=== PATIENT | female | born 1990 | race Caucasian/White ===

== ENCOUNTER 2019-11-25 00:54 | Outpatient (CLI) | payer BC, SELFPAY ==
[2019-11-25 19:20] LABS: SARS-CoV-2 RNA PCR Negative
== END 2019-11-25 00:55 | disposition home or self-care (01) ==
LOC: ANHCOVIDDT 00:54
PROVIDERS: Visit Provider Obstetrics & Gynecology
DX: Z01.812 Encounter for preprocedural laboratory examination (principal); Z11.59 Encounter for screening for other viral diseases
CPT/HCPCS: 87635; C9803; U0003

== ENCOUNTER 2019-11-27 02:23 | Day surgery (SDC) | payer BC, SELFPAY ==
[2019-11-13 14:48] VITALS: BMI 23.1
[2019-11-27] VITALS (8 sets, daily range): BP systolic 91–119; BP diastolic 68–85; PULSE 75–107; RESP 12–20; TEMP 36.4–36.9; O2SAT 95–100
--- NOTE | 2019-11-27 07:38 | PM.IMHP ---
H&P: HPI History of Present Illness Chief complaint: Pelvic Pain Narrative: Ro Presley is a 29 year old female since March. The pain is mostly on the right side. No relief with Motrin or Tylenol. Negative for infection. She has had normal pelvic ultrasound. She had physical therapy and did not get any relief. She was treated for possible subclinical endometritis and no change in pain after the antibiotics. She denies intestinal symptoms. She declined trial of Depo-Provera, Depo-Lupron or Orilissa. Review of Systems Review of Systems: All systems reviewed & are unremarkable except as noted in HPI and below Constitutional: Constitutional: Reports no additional constitutional complaints Eyes: Eyes: Reports no additional eye complaints ENT: Reports Normal hearing present Cardiovascular: Cardiovascular: Denies chest pain and Denies dyspnea Respiratory: Respiratory: Reports no additional respiratory complaints, Reports cough, Denies dyspnea and Reports other Genitourinary: Genitourinary: Reports no additional female genitourinary complaints, Reports as per HPI, Denies dyspareunia, Denies vaginal discharge, Denies vaginal dryness, Denies vaginal odor and Denies vaginal pruritus Integumentary/Breasts: Skin/Breast: Denies breast mass and Denies nipple discharge Neurologic: Reports Normal hearing present Psychiatric: Psychiatric: Reports no additional psychiatric complaints Endocrine: Endocrine: Reports no additional endocrine complaints Hematologic/Lymphatic: Hematologic/Lymphatic: Reports no additional hematologic/lymphatic complaints PMF Past Medical History Medical History Anemia Irregular periods Pelvic pain Vaginal delivery Family History Family History Grandparent Hypertension, Onset Age: 63 Family history of elevated blood lipids Mother Family history of osteoporosis Family history of arthritis Sibling Family history of seizure disorder Other Family history of allergic disorder Social History Social History Smoking status: Never smoker Second hand tobacco smoke exposure: No Alcohol intake: never Substance use: never Substance use type: does not use Spiritual care concerns: No Meds Home Medications and Allergies Home Medications Medication Instructions Recorded Confirmed Type ibuprofen 400 mg PO PRN PRN 11/13/19 11/13/19 History Allergies Allergy/AdvReac Type Severity Reaction Status Date / Time vancomycin Allergy Intermediate Unknown Verified 11/19/19 12:56 Exam Const: Orientation/consciousness: oriented to person and oriented to place HENMT: Head: normal to inspection Eyes: General: appearance normal, both eyes and all related structures Resp: Effort & Inspection: normal respiratory effort : General: Yes no CVA tenderness External Female Exam: normal external appearance and normal appearance of the urethra Speculum Exam - Vagina: normal appearance of the vagina Speculum Exam - Cervix: normal appearance of the cervix Bimanual exam- vagina & uterus: uterine size normal, uterine mobility normal, no cervical motion tenderness and Uterine tenderness Bimanual Exam- Adnexa, other: normal adnexae, normal, no tenderness and no masses noted Back/Spine/Pelvis: Back: no CVA tenderness Neuro: General: oriented to person and oriented to place Cognition (Neuro): normal cognition Speech: normal speech Extrem: General: normal to inspection Psych: Appearance: grossly normal and well kempt Assessment and Plan Assessment and plan (1) Pelvic pain: Code(s): R10.2 - Pelvic and perineal pain Status: Acute Assessment and Plan: Will proceed with diagnostic laparoscopy and indicated procedures as necessary if any finding for etiology of pelvic pain.
--- NOTE | 2019-11-27 07:47 | WPDANESEPPF ---
Anes - Initial Pre Proc Eval Procedure: Operation Date: 11/27/19 09:00 Proposed Procedures p Diagnostic Laparoscopy - Marcellus Magaña MD Date/Time: 11/27/19 07:47 Surgeon: Marcellus Magaña MD Pre Op Diagnosis: Pelvic Pain Patient Data Age: 29 Gender: F Height: 5 ft 3 in Weight: 59.4 kg Allergies Allergy/AdvReac Type Severity Reaction Status Date / Time vancomycin Allergy Intermediate Unknown Verified 11/19/19 12:56 Home Medications Medication Instructions Recorded Confirmed Type ibuprofen 400 mg PO PRN PRN 11/13/19 11/13/19 History Patient hx anesthesia problems: none Family hx anesthesia problems: none PMFSH Past Medical History Medical History Anemia Irregular periods Pelvic pain Vaginal delivery Family History Family History Grandparent Hypertension, Onset Age: 63 Family history of elevated blood lipids Mother Family history of osteoporosis Family history of arthritis Sibling Family history of seizure disorder Other Family history of allergic disorder Social History Social History Smoking status: Never smoker Second hand tobacco smoke exposure: No Alcohol intake: never Substance use: never Substance use type: does not use Spiritual care concerns: No Anes - Eval Final PreProcedure Day of Procedure 11/27/19 07:47 Patient weight: normal Heart: regular rate and rhythm Lungs: clear to auscultation Airway: Mallampati scale class 1 Neurological: alert and oriented Last oral intake: >/= 8 hours ASA classification: II Emergent: no Anesthetic plan: proceed Anesthesia type and monitoring: general ETT and standard monitoring Informed Consent: The patient's anesthetic plan and its attendant risks and benefits were discussed with the patient/family/POA. Questions were solicited and answers provided to the satisfaction of the patient/family/POA.
[2019-11-27] MEDS: ACETAMINOPHEN 500 MG TABLET 1000 MG PO (08:15)
[2019-11-27] MEDS: KETOROLAC 15 MG/ML VIAL (*BKC) IV PUSH (08:15)
[2019-11-27] MEDS: LACTATED RINGERS 1,000 ML 30 ML IV CONT (08:15)
--- NOTE | 2019-11-27 08:16 | PM.PROC ---
Procedure Note - Detailed Date of procedure: 11/27/19 Pre-op diagnosis: Pelvic Pain Post-op diagnosis: other (1. Endometriosis 2. Pelvic congestion syndrome) Procedure performed: 1. Diagnostic laparascopy 2. Biopsy of peritoneal lesions. 3. Cauterization of pelvic side wall and cul de sac lesions. Description of procedure: After informed consent was obtained. Patient was taken to the operating room. General endotracheal anesthesia was administered. She was placed in low lithotomy position. An exam under anesthesia was performed. Uterus mobile no mass palpated. She was prepped and draped in sterile fashion. Attention was turned to vagina. Speculum inserted and tenaculum placed on cervix and acorn manipulator placed in cervical canal. Attention was then turned to abdomen. A small vertical incision was made at umbilicus and a verres needle was inserted. Confirmation into abdomen was obtained with free flow of fluid and normal peritoneal pressures. A pneumoperitoneum of 15mmHg was obtained. A five mm port was inserted under laparoscopic visualization. She was placed in Trendelenburg position. An incision was made on the right side of abdomen and a 5mm port was inserted under laparoscopic visualization. The pelvis was inspected. Findings of very engorged pelvic vasculature, right greater than left visualized. Along the left ovarian fossa small white patch lesion visualized. This lesion was excised with biopsy instrument. There was small clearish papular lesions in cul de sac mostly on right. This area was biopsied and the visual lesions were cauterized. Hemostasis noted at both sites. The left port was removed. The uterine manipulator was removed. Pneumoperitoneum was removed. 7cc of 1% lidocaine injected at incision sites and 4.0 vicryl subcutaneous stitch closed each site. Dermabond placed on both. Dressing placed on umbilical incision. Sponge count correct. She was extubated in OR and taken to recovery room. Anesthesia: GETA Surgeon: Marcellus Magaña MD Estimated blood loss (mL): 5 Packing: No Pathology: yes (1. Biopsy of white lesion on left pelvic sidewall 2. Biopsy of lesion on right cul de sac) Complications: No immediate complications Condition: stable Findings: Normal appearing uterus. Very engorged pelvic vasculature along pelvic side wall bilaterally, right greater than left and along left mesosalpinx. White plaque lesion on the left pelvic sidewall excised and cauterized. Clearish papular lesions small in posterior cul de sac mostly on the right. Normal appearing ovaries bilaterally. Normal appendix bilaterally.
--- NOTE | 2019-11-27 09:42 | SUR.OPER ---
EBL:20cc
== END 2019-11-27 12:01 | disposition home or self-care (01) ==
PROVIDERS: Visit Provider Obstetrics & Gynecology
PROC: (CPT 49320; principal; 2019-11-27 09:00)
DX: N85.8 Other specified noninflammatory disorders of uterus (principal); N94.89 Other specified conditions associated with female genital organs and menstrual cycle; R10.2 Pelvic and perineal pain
CPT/HCPCS: 58662; 88305; A9270; J0330; J1100; J1885; J2250; J2370; J2405; J2704; J3010; J7120

== ENCOUNTER 2020-02-27 10:26 | Outpatient (CLI) | payer BC, SELFPAY ==
--- NOTE | ~2020-02-27 | US_ITS ---
EXAMINATION: US OB <= 14 weeks fetus DATE: 02/27/2020 11:00 INDICATION: Uncertain dates. TECHNIQUE: Real-time transabdominal pelvic ultrasound was performed. COMPARISON: Ultrasound 05/25/2019 FINDINGS: The uterus measures 10.0 x 5.0 x 7.1 cm. There is an intrauterine gestational sac. A yolk sac is iden tified. The crown rump length measures 3 mm, which correlates with an estimated gestational ag e of 5 weeks and 6 day(s) (+/-) 4 day(s). heart motion is identified measuring 96 beats per min garrick (bpm) by M-mode Doppler. The right ovary measures 4.7 x 3.9 x 3.7 cm. The left ovary measures 2.6 x 0.9 x 1.7 cm. There is a 3.6 cm hemorrhagic cyst in right ovary. There is normal vascular flow in the ovaries. There is no free fluid in the pelvis. IMPRESSION: 1. Single living intrauterine gestation with estimated date of delivery of 10/23/2020. 2. 3.6 cm hemorrhagic cyst in right ovary. Reviewed, dictated and finalized at location A. IMPRESSION: 1. Single living intrauterine gestation with estimated date of delivery of 10/06. 2. 3.6 cm hemorrhagic cyst in right ovary.
== END 2020-02-27 10:27 | disposition home or self-care (01) ==
LOC: ANHIMG 10:37
PROVIDERS: Visit Provider Obstetrics & Gynecology
DX: Z36.89 Encounter for other specified antenatal screening (principal); N83.201 Unspecified ovarian cyst, right side
CPT/HCPCS: 76801

== ENCOUNTER 2020-08-25 07:58 | Outpatient (CLI) | payer BC, SELFPAY ==
[2020-08-25 08:23] LABS: Glucose Fasting Gestational 84 mg/dL (>/=95)
[2020-08-25 10:15] LABS: Glucose 1 Hour Gest 142 mg/dL (>/=180)
[2020-08-25 11:04] LABS: Glucose 2 Hour Gest 125 mg/dL (>/= 155)
[2020-08-25 11:50] LABS: Glucose 3 Hour Gest 110 mg/dL (>/=140)
== END 2020-08-25 07:59 | disposition home or self-care (01) ==
PROVIDERS: Visit Provider Obstetrics & Gynecology
DX: R73.09 Other abnormal glucose (principal)
CPT/HCPCS: 36415; 82951; 82952

== ENCOUNTER 2020-10-22 05:51 | Inpatient (IN) | payer BC, SELFPAY ==
[2020-10-22] VITALS (90 sets, daily range): BP systolic 77–123; BP diastolic 43–87; PULSE 64–134; RESP 18; TEMP 36.2–36.8; O2SAT 97–100; BMI 30.9
[2020-10-22 06:42] LABS: Basophils Percent Auto 0.4 % (0.2-1.2); Eosinophils Absolute Auto 0.2 K/mm3 (0-0.3); Eosinophils Percent Auto 1.3 % (0-4.4); Hematocrit 35.6 % (37.0-47.0); Hemoglobin 10.8 g/dL (12.0-15.0); Immature Granulocyte Absolute 0.13 K/mm3 (0.00-0.031); Immature Granulocyte Percent A 1.2 % (0-0.5); Lymphocytes Absolute Auto 1.94 K/mm3 (0.9-3.2); Lymphocytes Percent Auto 17.3 % (18.3-44.2); Mean Corpuscular HGB Conc 30.3 g/dl (32-36); Mean Corpuscular Hemoglobin 26.3 pg (26-34); Mean Corpuscular Volume 86.8 fl (80-100); Mean Platelet Volume 11.5 fl (7.4-10.4); Monocytes Absolute Auto 0.9 K/mm3 (0.1-0.6); Monocytes Percent Auto 7.7 % (2.6-8.5); Neutrophils Absolute Auto 8.1 K/mm3 (1.3-6.7); Neutrophils Percent Auto 72.1 % (45.5-73.1); Platelet Count Result 184 k/mm3 (150-375); Red Cell Distribution Width 15.4 % (11.5-14.5); White Blood Count 11.2 K/mm3 (4.5-10.0)
[2020-10-22] MEDS: OXYTOCIN 30 UNITS/NS 500 ML 30 UNITS/500 ML BAG IV CONT (06:52)
[2020-10-22] MEDS: LACTATED RINGERS 1,000 ML 125 ML IV CONT ×3 (06:52→11:14)
--- NOTE | 2020-10-22 09:27 | WPDANESEPP ---
Anes - Eval Pre Procedure Procedure: Labor epidural Date/Time: 10/22/20 09:27 Surgeon: ila Preop Diagnosis: pain during labor Pre Op Diagnosis: IOL Patient Data Age: 30 Gender: F Height: 1.61 m Weight: 80.5 kg Last Vital Signs Temp 36.4 C L 10/22/20 07:00 Pulse 73 10/22/20 09:00 BP 103/73 10/22/20 09:00 Allergies Allergy/AdvReac Type Severity Reaction Status Date / Time vancomycin Allergy Intermediate Unknown Verified 10/20/20 08:28 Home Medications Medication Instructions Recorded Confirmed Type cholecalciferol (vitamin D3) 50 50 mcg PO DAILY 08/13/20 10/14/20 History mcg (2,000 unit) capsule prenat.vits,mikey,[id number] 1 tablet PO DAILY 08/13/20 10/14/20 History pyridoxine (vitamin B6) 50 mg 50 mg PO DAILY 08/13/20 10/14/20 History tablet sertraline 25 mg PO DAILY 10/22/20 10/22/20 History Laboratory Tests 10/22/20 10/22/20 10/22/20 06:28 06:28 06:28 WBC 11.2 K/mm3 H K/mm3 (4.5-10.0) RBC 4.10 M/mm3 L M/mm3 (4.2-5.4) Hgb 10.8 g/dL L g/dL (12.0-15.0) Hct 35.6 % L % (37.0-47.0) MCV 86.8 fl fl (80-100) MCH 26.3 pg pg (26-34) MCHC 30.3 g/dl L g/dl (32-36) RDW 15.4 % H % (11.5-14.5) Plt Count 184 k/mm3 k/mm3 (150-375) MPV 11.5 fl H fl (7.4-10.4) Immature Gran % (Auto) 1.2 % H % (0-0.5) Neut % (Auto) 72.1 % % (45.5-73.1) Lymph % (Auto) 17.3 % L % (18.3-44.2) Stearns % (Auto) 7.7 % % (2.6-8.5) Eos % (Auto) 1.3 % % (0-4.4) Baso % (Auto) 0.4 % % (0.2-1.2) Lymph # (Auto) 1.94 K/mm3 K/mm3 (0.9-3.2) Stearns # (Auto) 0.9 K/mm3 H K/mm3 (0.1-0.6) Eos # (Auto) 0.2 K/mm3 K/mm3 (0-0.3) Baso # (Auto) 0.0 K/mm3 K/mm3 (0.0-0.1) Abs Immat Gran (auto) 0.13 K/mm3 H K/mm3 (0.00-0.031) Absolute Neuts (auto) 8.1 K/mm3 H K/mm3 (1.3-6.7) Absolute Nucleated RBC 0.0 K/mm3 K/mm3 (0.0-0.012) Nucleated RBC % 0.0 % % (0.0-0.2) RPR Pending Blood Type A Positive Antibody Screen Negative Patient hx anesthesia problems: none Family hx anesthesia problems: none PMFSH Past Medical History Medical History Anemia Irregular periods Pelvic pain Vaginal delivery x2 Surgical History Surgical History History of cholecystectomy Family History Family History Grandparent Hypertension, Onset Age: 63 Family history of elevated blood lipids Mother Family history of osteoporosis Family history of arthritis Sibling Family history of seizure disorder Other Family history of allergic disorder Social History Social History Smoking status: Never smoker Second hand tobacco smoke exposure: No Alcohol intake: never Substance use: never Substance use type: does not use Gender identity (if verbalized by the patient): Female Spiritual care concerns: No Exam Day of Procedure 10/22/20 09:27
[2020-10-22] MEDS: OXYTOCIN 30 UNITS/NS 500 ML 30 UNITS/500 ML BAG 125 UNITS IV CONT (14:03)
--- NOTE | 2020-10-22 16:46 | PC.NURSE ---
Patient transferred to post room #284 via wheelchair. Support person present. Oriented to unit, room, information board, rooming in, admission packet and security measures. Patient verbalizes understanding.
[2020-10-22] MEDS: IBUPROFEN 600 MG TABLET PO (19:59)
[2020-10-22] MEDS: SERTRALINE HCL 25 MG TABLET PO (20:00)
[2020-10-22] MEDS: ACETAMINOPHEN 325 MG TABLET 650 MG PO (23:39)
[2020-10-23] MEDS: IBUPROFEN 600 MG TABLET PO (03:48)
[2020-10-23 03:55] VITALS: BP 103/76; PULSE 77; RESP 18; TEMP 36.9; O2SAT 99
[2020-10-23 04:55] LABS: Hemoglobin 9.8 g/dL (12.0-15.0)
--- NOTE | 2020-10-23 07:43 | PM.IMHP ---
H&P: HPI History of Present Illness Date/Time: 10/23/20 07:43 Patient admitted at 39 weeks for MIL. PNC significant for history of anxiety, treated with medication. She has done well on medication. Also has mild anemia of . Labs reviewed. GBS negative. Chief Complaint: Induction of labor Review of Systems Review of Systems: All systems reviewed & are unremarkable except as noted in HPI and below Constitutional: Constitutional: Reports no additional constitutional complaints and Denies headache(s) Eyes: Eyes: Denies spots in vision ENT: Reports system reviewed and no additional complaints, except as documented and Denies headache(s) Cardiovascular: Cardiovascular: Denies chest pain and Denies dyspnea Respiratory: Respiratory: Denies dyspnea Gastrointestinal: Gastrointestinal: Reports no additional gastrointestinal complaints Genitourinary: Genitourinary: Reports amenorrhea Musculoskeletal: Musculoskeletal: Reports no additional musculoskeletal complaints Integumentary/Breasts: Skin/Breast: Denies breast mass and Denies rash Neurologic: Denies headache(s) Psychiatric: Psychiatric: Reports no additional psychiatric complaints [facility] Past Medical History Medical History (Updated 10/23/20 @ 10:14 by Marcellus Magaña MD) Anemia Irregular periods Pelvic pain Vaginal delivery x2 Surgical History Surgical History History of cholecystectomy Family History Family History Grandparent Hypertension, Onset Age: 63 Family history of elevated blood lipids Mother Family history of osteoporosis Family history of arthritis Sibling Family history of seizure disorder Other Family history of allergic disorder Social History Social History Smoking status: Never smoker Second hand tobacco smoke exposure: No Alcohol intake: never Substance use: never Substance use type: does not use Gender identity (if verbalized by the patient): Female Spiritual care concerns: No Meds Home Medications and Allergies Home Medications Medication Instructions Recorded Confirmed Type cholecalciferol (vitamin D3) 50 50 mcg PO DAILY 08/13/20 10/14/20 History mcg (2,000 unit) capsule prenat.vits,mikey,nim-[id number] 1 tablet PO DAILY 08/13/20 10/14/20 History pyridoxine (vitamin B6) 50 mg 50 mg PO DAILY 08/13/20 10/14/20 History tablet sertraline 25 mg PO DAILY 10/22/20 10/22/20 History Allergies Allergy/AdvReac Type Severity Reaction Status Date / Time vancomycin Allergy Intermediate Unknown Verified 10/20/20 08:28 Vital Signs Vital Signs - 24 hr 10/22/20 08:00 10/22/20 08:30 10/22/20 09:00 Temperature Pulse Rate 83 69 73 Respiratory Rate Blood Pressure 106/75 107/68 103/73 Pulse Oximetry 10/22/20 09:29 10/22/20 09:30 10/22/20 09:34 Temperature Pulse Rate 82 Respiratory Rate Blood Pressure 116/82 Pulse Oximetry 100 100 10/22/20 09:35 10/22/20 09:39 10/22/20 09:44 Temperature Pulse Rate 101 H 90 Respiratory Rate Blood Pressure 115/80 115/82 Pulse Oximetry 100 100 10/22/20 09:49 10/22/20 09:51 10/22/20 09:54 Temperature Pulse Rate 81 84 86 Respiratory Rate Blood Pressure 121/68 98/56 L 108/63 Pulse Oximetry 100 100 10/22/20 09:55 10/22/20 09:57 10/22/20 09:59 Temperature Pulse Rate 93 75 Respiratory Rate Blood Pressure 105/63 86/43 L Pulse Oximetry 100 10/22/20 10:00 10/22/20 10:02 10/22/20 10:03 Temperature 97.1 F L Pulse Rate 78 76 Respiratory Rate Blood Pressure 97/56 L 104/65 Pulse Oximetry 10/22/20 10:04 10/22/20 10:06 10/22/20 10:09 Temperature Pulse Rate 78 75 Respiratory Rate Blood Pressure 105/63 101/67 Pulse Oximetry 99 99 10/22/20 10:12 10/22/20 10:14 10/22/20 10:15 Temp
--- NOTE | 2020-10-23 08:11 | P.DS_ITS ---
DS: Admitting Diagnosis Admitting Diagnosis Admitting Diagnosis: induction of labor DS: Discharge Diagnosis Discharge Diagnosis (1) Vaginal delivery: Code(s): O80 - Encounter for full-term uncomplicated delivery Status: Acute OB - DS: Summary OB Procedures : None OB Procedures Intrapartum: Spontaneous Vag Delivery OB Procedures: : None Peripartum Data Delivery Method: Natural Vaginal Laceration Description: None complications: none Status at Discharge Functional status at discharge: independent ambulation Overall status at discharge: patient is progressing back to baseline Time Spent with Patient Time attestation: Total time spent providing and/or coordinating discharge services: Time spent: Less than 30 minutes DS: Data Data Completed and Pending Pending studies at discharge: Pending at discharge 10/22/20 14:45 Surgical [PTH] Routine Labs on day of discharge: Labs from last 24 hours 10/23/20 04:46 Hgb 9.8 L Hct 32.0 L Discharge Plan Discharge Attending physician on discharge: Marcellus Magaña Discharging Clinician: Rosmery Sue Patient Disposition: Home, Self-Care Activity: may shower and pelvic rest Diet: as tolerated Patient Instructions: Antibiotic Form Stand Alone Forms: General Discharge Information Follow-up/Referrals: Marcellus Magaña MD [Physician] - 4 Weeks Discharge Medications: Continued prenat.vits,mikey,kwl-kwbq-jirqa Tablet 1 tablet PO DAILY RF: 0 pyridoxine (vitamin B6) 50 mg tablet 50 mg PO DAILY RF: 0 cholecalciferol (vitamin D3) 50 mcg (2,000 unit) capsule 50 mcg PO DAILY RF: 0 sertraline 50 mg tablet 25 mg PO DAILY RF: 0 Date of admission: 10/22/20 05:51 Primary Care Provider: PHYSICIAN,EDUCATIONAL ADMINISTRATION TEACHER Admitting Provider: Marcellus Magaña Attending physician on admission: Marcellus Magaña Condition: Stable
--- NOTE | 2020-10-23 08:14 | P.PNOB_ITS ---
OB - PN: Subj Subjective Date/time seen: 10/23/20 08:14 Patient comments: no complaints, pain well controlled and other (Lochia similar to menses) [place] baby status: doing well OB - PN: Obj Data Labs CBC & Chem 7: 10/23/20 04:46 Labs: Laboratory Results - last 24 hr 10/23/20 04:46 Hgb 9.8 L Hct 32.0 L OB - PN A/P Plan day: 1 (s/p vaginal delivery, doing well) Plan: routine care and discharge home (follow up in 4 weeks) Time Spent With Patient Time: Total time spent is greater than 50% in coordination of care (as documented) at patient's floor/unit and/or counseling patient: Time with patient: less than 15 minutes Exam Const: General: no acute distress GI: Inspection: other (Fundus firm and nontender at umbilicus) GI Palp: Yes Soft to palpation and No Tenderness to palpation present (GI) Extrem: General: no edema
[2020-10-23 08:24] LABS: Rapid Plasma Reagin Non-Reactive (NonReactive)
[2020-10-23 08:30] VITALS: BP 100/61; PULSE 69; RESP 20; TEMP 36.6; O2SAT 99
--- NOTE | 2020-10-23 08:53 | WPDANLDPN2 ---
Anes-Prog Note L&D Date/Time: 10/23/20 08:53 Comfortable throughout: labor and delivery Neuraxial method: epidural Epidural/Spinal procedure site: clean & non-tender Neuro status: Neuro function grossly intact. Cardiovascular status: normal Respiratory status: normal Airway patency: baseline Mental status: baseline Post-Op hydration status: normal Vital Signs: Last Vital Signs Temp 36.9 C 10/23/20 03:55 Pulse 77 10/23/20 03:55 Resp 18 10/23/20 03:55 BP 103/76 10/23/20 03:55 Pulse Ox 99 10/23/20 03:55 Pain score (VAS): 0 I/O: Intake & Output 10/22/20 10/23/20 10/23/20 23:59 07:59 15:59 Output Total 120 Balance -120 Post-procedural complaints: none Patient feedback: Patient satisfied with anesthetic care.
[2020-10-23] MEDS: MULTIVIT/MIN/PREN/FOL AC/IRON TABLET 1 TAB PO (08:55)
[2020-10-23] MEDS: POLYSACCHARIDE IRON COMPLEX 150 MG CAPSULE PO (08:56)
[2020-10-23] MEDS: TETANUS,DIPHTHERIA,AC PERTUSSIS ADULT (0.5 ML) BOOSTRIX IM (08:56)
[2020-10-23] MEDS: DOCUSATE SODIUM 100 MG CAPSULE PO (08:56)
--- NOTE | 2020-10-23 10:16 | PM.OBPNVD ---
OB - PN: Subj Subjective Date/time seen: 10/22/20 0800 Tracing reviewed. Ctx q 2-3. Moderate. Cat 1 tracing. Continue Pitocin. OB - PN: Obj Data Labs CBC & Chem 7: 10/23/20 04:46 Labs: Laboratory Results - last 24 hr 10/22/20 10/23/20 06:28 04:46 Hgb 9.8 L Hct 32.0 L RPR Non-reactive OB - PN A/P Time Spent With Patient Time: Total time spent is greater than 50% in coordination of care (as documented) at patient's floor/unit and/or counseling patient:
--- NOTE | 2020-10-23 10:17 | PM.OBPRVD ---
OB - Delivery Note Procedure Delivery date: 10/22/20 Procedure: Spontaneous vaginal delivery. Intrapartal events: Other (Meconium) Induction method: per pitocin protocol Delivery monitor: external FHT Route of delivery: Laceration Description: None Specimen: Yes (Placenta and cord, cord segment with true knot. ) Quantitative Blood Loss (ml): 200 Anesthesia type: Epidural Disposition: floor Narrative: Patient admitted on 10/22 for medical induction of labor with Pitocin. She proceeded into active labor and had spontaneous rupture of membranes with meconium. She progressed to complete and delivered a female infant at 1323 over intact perineum. Peds available. Infant was vigorously crying upon delivery and placed on maternal abdomen. Delayed cord clamping for 35 seconds until cord apulsatile. The placenta delivered spontaneously and intact. There was noted to be a true knot in the cord. No lacerations. EBL 200cc. Patient tolerated procedure well. Baby Date of : 10/22/20 Time of : 13:23 Weeks of gestation at delivery: 39 gender: Female (3570 grams.) presentation: vertex position: Right Occiput Anterior Placenta delivery description: Spontaneous cord vessel description: True Knot and Delayed Cord Clamping score one minute: 8 score five minutes: 9
[2020-10-23 12:07] VITALS: BP 111/66; PULSE 71; RESP 16; TEMP 36.6; O2SAT 100
[2020-10-26 11:03] VITALS: BP 113/75; PULSE 75; RESP 20; TEMP 37.2; O2SAT 100
== END 2020-10-23 17:01 | disposition home or self-care (01) | DRG 807 ==
LOC: ANHOB2 10-23 14:18 → ANHLDR 10-26 11:13 → ANHOB2 10-26 11:13
PROVIDERS: Admitting Provider Obstetrics & Gynecology; Visit Provider Obstetrics & Gynecology
DX: O99.02 Anemia complicating childbirth (principal); Z37.0 Single live birth; Z3A.39 39 weeks gestation of pregnancy; D64.9 Anemia, unspecified; O77.0 Labor and delivery complicated by meconium in amniotic fluid; O69.2XX0 Labor and delivery complicated by other cord entanglement, with compression, not applicable or unspecified; O99.344 Other mental disorders complicating childbirth; F41.9 Anxiety disorder, unspecified
CPT/HCPCS: 36415; 85014; 85018; 85025; 86592; 86850; 86900; 86901; 88307; 90715; A9270; J2590; J2795; J7120

== ENCOUNTER 2021-04-19 08:40 | Emergency (ER) | payer BC, SELFPAY ==
[2021-04-19 08:47] VITALS: BP 109/70; PULSE 74; RESP 16; TEMP 35.9; O2SAT 100
--- NOTE | 2021-04-19 08:52 | ED.BACK ---
HPI - Back Pain/Injury General Chief Complaint: Back Pain/Injury Stated Complaint: Back Pain Time Seen by Provider: 04/19/21 08:52 Source: patient, RN notes reviewed and old records reviewed Mode of arrival: ambulatory Limitations: no limitations History of Present Illness HPI Narrative: 30-year-old female presents to the [facility] with complaints of lower back pain since picking her 5-month-old baby up yesterday. Denies any numbness and tingling in extremities. Denies any loss or retention of bowel or bladder. Pain is worse with changing of positions. No midline tenderness. No saddle anesthesia. denies chest pain or abdominal pain. No urinary symptoms. No nausea vomiting or diarrhea. Denies fevers. Related Data Allergies Allergy/AdvReac Type Severity Reaction Status Date / Time vancomycin Allergy Intermediate Unknown Verified 04/19/21 09:05 Review of Systems Review of Systems: All systems reviewed & are unremarkable except as noted in HPI and below Constitutional: Constitutional: Reports no additional constitutional complaints, Denies chills and Denies fever(s) Eyes: Eyes: Reports no additional eye complaints ENT: Reports system reviewed and no additional complaints, except as documented Cardiovascular: Cardiovascular: Reports no additional cardiovascular complaints Respiratory: Respiratory: Reports no additional respiratory complaints Gastrointestinal: Gastrointestinal: Reports no additional gastrointestinal complaints Musculoskeletal: Musculoskeletal: Reports as per HPI and Reports back pain Integumentary/Breasts: Skin/Breast: Reports system reviewed and no additional complaints, except as docu Neurologic: Reports system reviewed and no additional complaints, except as documented, Denies confusion, Denies vertigo, Denies dizziness, Denies syncope, Denies headache(s), Denies focal weakness, Denies numbness and Denies weakness Psychiatric: Psychiatric: Reports no additional psychiatric complaints Allergic/Immunologic: Allergic/Immunologic: Reports no additional allergic/immunologic complaints PMFSH Past Medical History Medical History Anemia Irregular periods Pelvic pain Vaginal delivery x3 Surgical History Surgical History History of cholecystectomy Family History Family History Grandparent Hypertension, Onset Age: 63 Family history of elevated blood lipids Mother Family history of osteoporosis Family history of arthritis Sibling Family history of seizure disorder Other Family history of allergic disorder Social History Social History Smoking status: Never smoker Second hand tobacco smoke exposure: No Alcohol intake: never Substance use: never Substance use type: does not use Gender identity (if verbalized by the patient): Female Spiritual care concerns: No Comments At the time of my signature, I reviewed and agree with the nursing past medical, surgical, social, and family history. There is no relevant family history pertinent to the patient complaint. Exam Const: General: healthy appearing, well developed, alert and acute distress mild (pain) Nutritional Appearance: average body habitus and well nourished Orientation/consciousness: patient oriented x3 Limitations: no limitations HENMT: Head: normal to inspection Ears: external ears normal Eyes: Pupils: Equal, round and reactive pupils present Neck: Neck: normal visual inspection, no lymphadenopathy and no meningeal signs Chest: Chest palpation & inspection: normal inspection of the chest Resp: Effort & Inspection: normal respiratory effort and no use of accessory muscles Auscultation: clear to auscultation bilaterally, no crackles, no rales, no rhonchi and no wheezes Cardio: Rate: regular rate Rhythm: regular rhyt
== END 2021-04-19 09:15 | disposition home or self-care (01) ==
PROVIDERS: Emergency Provider Nurse Practitioner
DX: S39.012A Strain of muscle, fascia and tendon of lower back, initial encounter (principal); X50.0XXA Overexertion from strenuous movement or load, initial encounter
CPT/HCPCS: 99213; G0463

== ENCOUNTER 2021-09-24 08:17 | Emergency (ER) | payer BC, SELFPAY ==
[2021-09-24 08:31] VITALS: BP 105/69; PULSE 105; RESP 16; TEMP 37.8; O2SAT 100
--- NOTE | 2021-09-24 08:31 | ED.URI ---
HPI - URI/Sore Throat General Chief Complaint: Upper Respiratory Infection Stated Complaint: Sore throat,Ear Pain Time Seen by Provider: 09/24/21 08:31 Source: patient Mode of arrival: ambulatory Limitations: no limitations History of Present Illness HPI Narrative: 31-year-old female with no significant medical history presents with complaint of nasal congestion, headaches, body aches, chills, fever, sore throat for 4 days. Reports right ear pain started yesterday. Is taking [id number] medications to treat her symptoms and ibuprofen. Denies nausea vomiting diarrhea. No shortness of breath or chest pain. All systems reviewed and negative except as noted above. Related Data Allergies Allergy/AdvReac Type Severity Reaction Status Date / Time vancomycin Allergy Intermediate Red Verified 08/30/21 13:19 splotches Review of Systems Review of Systems: CONSTITUTIONAL: Denies fever, chills, or sweats. EYES: Denies visual changes, redness, or discharge. ENT: Reports rhinorrhea, congestion, sore throat and right ear pain. CARDIOVASCULAR: Denies chest pain, palpitations, or edema. RESPIRATORY: Reports cough. Denies dyspnea. GASTROINTESTINAL: Denies abdominal pain, nausea, vomiting, or diarrhea. GENITOURINARY: Denies dysuria or hematuria. SKIN: Denies rash or itching. MUSCULOSKELETAL: Denies back pain, joint pain, or myalgia. NEUROLOGIC: Denies headache, numbness, or weakness. PSYCHIATRIC: Denies anxiety or depression. All other systems reviewed are negative, except as documented in HPI. [facility] Past Medical History Medical History Allergies Anemia Cholecystectomy planned 2016 Headache Irregular periods Pelvic pain Vaginal delivery x3 Surgical History Surgical History H/O foot surgery 2011 History of cholecystectomy Family History Family History Grandparent Hypertension, Onset Age: 63 Family history of elevated blood lipids Depression Heart disease Mother Family history of osteoporosis Family history of arthritis Alcoholism Depression Sibling Family history of seizure disorder Depression Father Alcoholism Son Depression Other Family history of allergic disorder Social History Social History Smoking status: Never smoker Second hand tobacco smoke exposure: No Alcohol intake: never Substance use: never Substance use type: does not use Gender identity (if verbalized by the patient): Female Spiritual care concerns: No Comments At time of signature, agree with nursing past medical, surgical, social and family history. There is no relevant family history pertinent to the presenting complaint. Exam Narrative: GENERAL: This is a well-nourished, well-developed patient, in no apparent distress. HEAD: normocephalic, atraumatic. EYES: PERRL. Sclera clear/white. Vision is grossly intact. EARS: External ears normal, auditory canals clear and without drainage. Purulent fluid to right TM, mildly bulging with mild erythema. No perforation. Left TM is normal. NOSE: External nose normal with clear nasal drainage, mild congestion. THROAT: Mucous membranes moist, posterior pharynx clear with clear postnasal drainage. NECK: Neck supple, non-tender without lymphadenopathy, masses or thyromegaly. CARDIOVASCULAR: Regular rate and rhythm without murmurs, gallops, or rubs. RESPIRATORY: Clear to auscultation. Breath sounds equal bilaterally. No wheezes, rales, or rhonchi. SKIN: warm, Dry, intact with no suspicious lesions or rash, good texture and turgor. NEURO: awake, alert, and oriented to person, place and time. There were no obvious focal neurologic abnormalities. EXTREMITIES: Normal range of motion to all extremities. Course Course Level of Care: Expre
== END 2021-09-24 09:00 | disposition home or self-care (01) ==
PROVIDERS: Emergency Provider Nurse Practitioner Family; PCP Family Medicine
DX: J06.9 Acute upper respiratory infection, unspecified (principal); H65.01 Acute serous otitis media, right ear; Z20.822 Contact with and (suspected) exposure to COVID-19
CPT/HCPCS: 87426; 87804; 99213; C9803; G0463

== ENCOUNTER 2022-08-12 13:40 | Emergency (ER) | payer BC, SELFPAY ==
--- NOTE | 2022-08-12 13:50 | ED.SKABFB ---
HPI - Skin/Abscess/Foreign Bdy General Chief complaint: Skin/Abscess/Foreign Body Stated complaint: RASH Time Seen by Provider: 08/12/22 13:50 Source: patient Mode of arrival: ambulatory Limitations: no limitations History of Present Illness HPI narrative: 32-year-old female presents with itchy rash starting to right hand spreading to right forearm also to right breast, right side of abdomen and starting today to left side of neck. Patient reports is very itchy. States she was outside doing yard work on Monday, rash started on Monday. Using hydrocortisone cream with no relief. All systems reviewed and negative except as noted above. Related Data Allergies Allergy/AdvReac Type Severity Reaction Status Date / Time vancomycin Allergy Intermediate Red Verified 08/12/22 13:48 splotches Review of Systems Review of Systems: CONSTITUTIONAL: Denies fever, chills, or sweats. EYES: Denies visual changes, redness, or discharge. ENT: Denies rhinorrhea, congestion, sore throat, or otalgia. CARDIOVASCULAR: Denies chest pain, palpitations, or edema. RESPIRATORY: Denies cough or dyspnea. GASTROINTESTINAL: Denies abdominal pain, nausea, vomiting, or diarrhea. GENITOURINARY: Denies dysuria or hematuria. SKIN: Reports rash and itching. MUSCULOSKELETAL: Denies back pain, joint pain, or myalgia. NEUROLOGIC: Denies headache, numbness, or weakness. PSYCHIATRIC: Denies anxiety or depression. All other systems reviewed are negative, except as documented in HPI. [facility] Past Medical History Medical History Allergies Anemia Cholecystectomy planned 2015 Headache Irregular periods Pelvic pain Vaginal delivery x3 Surgical History Surgical History H/O foot surgery 2012 History of cholecystectomy Family History Family History Grandparent Hypertension, Onset Age: 63 Family history of elevated blood lipids Depression Heart disease Mother Family history of osteoporosis Family history of arthritis Alcoholism Depression Sibling Family history of seizure disorder Depression Father Alcoholism Son Depression Other Family history of allergic disorder Social History Social History Smoking status: Never smoker Second hand tobacco smoke exposure: No Alcohol intake: never Substance use: never Substance use type: does not use Gender identity (if verbalized by the patient): Female Spiritual care concerns: No Comments At time of signature, agree with nursing past medical, surgical, social and family history. There is no relevant family history pertinent to the presenting complaint. Exam Narrative: GENERAL: This is a well-nourished, well-developed patient, in no apparent distress. HEAD: normocephalic, atraumatic. EYES: PERRL. Sclera clear/white. Vision is grossly intact. EARS: External ears normal NOSE: External nose normal NECK: Neck supple, non-tender without lymphadenopathy, masses or thyromegaly. CARDIOVASCULAR: Regular rate and rhythm without murmurs, gallops, or rubs. RESPIRATORY: Clear to auscultation. Breath sounds equal bilaterally. No wheezes, rales, or rhonchi. SKIN: warm, Dry, intact, good texture and turgor. erythematous maculopapular rash to R upper arm, R side of ABD, R breast and L neck. some lesions area linearin appearance, others patchy. no drainage NEURO: awake, alert, and oriented to person, place and time. There were no obvious focal neurologic abnormalities. EXTREMITIES: No joint tenderness, effusion, or edema noted. Course Course Level of Care: Express Care Visit Vital Signs Vital signs: Vital Signs Temperature 37.1 C 08/12/22 13:51 Pulse Rate 81 08/12/22 13:51 Respiratory Rate 16 08/12/22 13:51 Blood Pressure 118/88 08/12/22 13:51 Pu
[2022-08-12 13:51] VITALS: BP 118/88; PULSE 81; RESP 16; TEMP 37.1; O2SAT 100
== END 2022-08-12 14:01 | disposition home or self-care (01) ==
PROVIDERS: Emergency Provider Nurse Practitioner Family; PCP Family Medicine
DX: L23.7 Allergic contact dermatitis due to plants, except food (principal)
CPT/HCPCS: 99213; G0463

== ENCOUNTER 2023-04-18 14:32 | Outpatient (CLI) | payer BC, SELFPAY ==
--- NOTE | ~2023-04-18 | US_ITS ---
EXAMINATION: US pelvic complete w TV DATE: 04/18/2023 15:09 INDICATION: Pelvic pain. Endometriosis. Comparison:02/27/2020 TECHNIQUE: Multiple transabdominal and endovaginal sonographic images of the pelvis performed. FINDINGS: The uterus measures 10 x 6.9 x 4 cm. The endometrial complex measures 9 mm. The right ovary measures 2.7 x 3.2 x 2.5 cm and the left ovary measures 5 x 3.1 x 2.5 cm. There are small follicles in each ovary. Normal doppler signal in both ovaries. There is free fluid in the pelvis. There are no abnormal masses seen on either side. IMPRESSION: 1. Unremarkable pelvic ultrasound. Reviewed, dictated and finalized at location [facility]. [facility] [employer]
== END 2023-04-18 14:33 ==
LOC: GOSHIMG 14:33
PROVIDERS: PCP Family Medicine; Visit Provider Obstetrics & Gynecology
DX: R10.2 Pelvic and perineal pain (principal)
CPT/HCPCS: 76830; 76856

== ENCOUNTER 2023-08-30 08:15 | Outpatient (CLI) | payer BC, SELFPAY ==
--- NOTE | ~2023-08-30 | CT_ITS ---
CT of the Abdomen and Pelvis: Indication: Abdominal pain Technique: 2.5 mm axial scans were obtained through the abdomen and pelvis following intravenous adm inistration of 100 cc of Omnipaque 350. Dose reduction technique was used on this scan by utilizing a utomated exposure control and iterative reconstruction technique. The dose-length product (DLP) was 5 88.81 mGy-cm. Findings: Scans through the lung bases are unremarkable. The liver, spleen, pancreas, adrenals and kidneys are within normal limits. Cholecystectomy clips are present. No evidence of aortic aneurysm. No lymphadenopathy. No bowel obstruction or bowel wall thickening. There is no evidence to suggest acute appendicitis. Images through the pelvis were performed. Urinary bladder unremarkable. 2 cm left adnexal cyst presen t. Small amount of pelvic ascites present. Impression: 2 cm left adnexal cyst with small amount of pelvic ascites, nonspecific. Consider ruptured ovarian cy st. Reviewed, dictated and finalized at [facility]. Impression: 2 cm left adnexal cyst with small amount of pelvic ascites, nonspecific. Consid er ruptured ovarian cyst.
== END 2023-08-30 08:16 ==
LOC: MICIMG 08:16
PROVIDERS: PCP Family Medicine; Visit Provider Family Medicine
DX: N83.292 Other ovarian cyst, left side (principal); R18.8 Other ascites
CPT/HCPCS: 74177; Q9967

== ENCOUNTER 2024-10-11 08:59 | Outpatient (CLI) | payer BC, SELFPAY ==
--- NOTE | ~2024-10-11 | MMUS_ITS ---
EXAMINATION: MM diagnostic luz maria BI w gillian, US breast BI complete HISTORY: Palpable left breast lump TECHNIQUE: Additional 3-D tomosynthesis images of the breasts were performed and synthetic 2-D images were generated. CAD analysis was submitted and interpreted. High resolution bilateral complete breas t ultrasound was performed. COMPARISON: None BREAST PARENCHYMAL COMPOSITION: Dense: The breasts are extremely dense, which lowers the sensitivity of mammography. FINDINGS: MAMMOGRAPHIC FINDINGS: There are no suspicious masses, calcifications or architectural distortion in either breast to sugges t malignancy. ULTRASOUND: Complete US of all 4 quadrants of the breast/s and retroareolar region was reviewed. Normal heterogen eous echotexture without focal solid or cystic mass in either breast. IMPRESSION: 1. No evidence for malignancy in either breast. 2. Routine yearly screening mammogram and regular clinical breast examination are recommended. BI-RADS Category 1: Negative Reviewed, dictated and finalized at location A. IMPRESSION: 1. No evidence for malignancy in either breast. 2. Routine yearly screening mammogram and regular clinical breast examination a re recommended. BI-RADS Category 1: Negative
== END 2024-10-11 09:00 | disposition home or self-care (01) ==
PROVIDERS: PCP Family Medicine; Visit Provider Family Medicine
DX: N63.21 Unspecified lump in the left breast, upper outer quadrant (principal)
CPT/HCPCS: 76641; 77062; 77066; G0279